=== PATIENT | female | born 1960 | race Two or more races ===

== ENCOUNTER → 2024-09-03 | Outpatient (CLI) | payer MEDICARE, SELFPAY ==
--- NOTE | 2024-09-03 14:00 | XR_ITS ---
Examination: Bone densitometry Date and time of exam:September 03, 2024 1419 hours INDICATIONS: Menopause age 49 vitamin D and calcium beginning 5 years ago Technique: Lumbar spine and hip total bone mineralization values of an calculated. Peak reference and age match control results have been displayed. Findings: Lumbar spine total bone mineralization is0.787 gm/cm2. This is 2.4 standard deviations below peak reference. This is 0.6 standard deviations below age-matched controls. Hip total bone mineralization is 0.803 gm/cm2 This is 1.2 standard deviations below peak reference. This is 0.1 standard deviations below age-matched controls Impression: There is osteopenia based on lumbar spine measurements. There is osteopenia based on hip measurements
== END | disposition home or self-care (01) ==
LOC: CDIM 13:41
PROVIDERS: PCP Internal Medicine; Referring Provider Internal Medicine; Visit Provider Internal Medicine
DX: M85.89 Other specified disorders of bone density and structure, multiple sites (principal)
CPT/HCPCS: 77080

== ENCOUNTER 2024-11-26 12:05 | Day surgery (SDC) | payer MEDICARE, SELFPAY ==
[2024-11-26] VITALS (9 sets, daily range): BP systolic 132–164; BP diastolic 76–90; PULSE 82–106; RESP 12–19; TEMP 36.7–37.1; O2SAT 95–100; BMI 22.2
[2024-11-26] MEDS: SODIUM CHLORIDE 0.9% 500 ML 500 ML 20 ML IV (13:51)
[2024-11-26] MEDS: fentaNYL CIT INJ 50 mCg/ML AMP 2ML (ASD USE ONLY) IVP (13:54)
[2024-11-26] MEDS: MIDAZOLAM INJ 1 MG/ML VIAL 2 ML (ASD USE ONLY) 2 MG IVP (14:00)
--- NOTE | 2024-11-26 15:15 | SUR.PHASEII ---
1450 Pt more awake and alert. Denies pain or N/V. Abd soft. Pt passing flatus. Victorina PO fluids. 1505 Pt assessment unchanged. No complaints. Amb with steady gait. Able to dress self. Pt and given dc instructions. Pt requesting to intrpret. Both state understanding. pt meets dc criteria-to home.
== END 2024-11-26 15:05 | disposition home or self-care (01) ==
PROVIDERS: PCP Internal Medicine; Referring Provider Specialist; Visit Provider Specialist
PROC: 0DBE8ZX Excision of Large Intestine, Via Natural or Artificial Opening Endoscopic, Diagnostic (ICD-10-PCS; CPT 45380; principal; 2024-11-26 12:45)
DX: Z12.11 Encounter for screening for malignant neoplasm of colon (principal); D12.8 Benign neoplasm of rectum; K64.9 Unspecified hemorrhoids
CPT/HCPCS: 45385; 45380; J1200; J2250; J3010; J7999

== ENCOUNTER → 2024-12-13 | Outpatient (CLI) | payer MEDICARE, SELFPAY | END | disposition home or self-care (01) | LOC: SLDO 14:30 | PROVIDERS: PCP Internal Medicine; Referring Provider Internal Medicine; Visit Provider Internal Medicine | DX: N39.0 Urinary tract infection, site not specified (principal) | CPT/HCPCS: 87086 ==

== ENCOUNTER → 2025-03-22 | Outpatient (CLI) | payer MEDICARE, SELFPAY | END | disposition home or self-care (01) | LOC: SLDO 13:58 | PROVIDERS: PCP Family Medicine; Referring Provider Physician Assistant; Visit Provider Physician Assistant | DX: N39.0 Urinary tract infection, site not specified (principal) | CPT/HCPCS: 87077; 87086; 87186 ==